=== PATIENT | male | born 1950 | race Caucasian/White ===

== ENCOUNTER 2017-10-10 07:58 | Emergency (ER) | payer MEDICARE ==
[2017-10-10] MEDS ORDERED: Proparacaine 0.5% Ophth Soln 15 ML Bottle EYERT ONE (08:20)
[2017-10-10] MEDS ORDERED: Benoxinate/Fluorescein 0.4-0.25% Ophth Soln 5 ML Bottle EYERT ONE (08:25)
[2017-10-10] MEDS ORDERED: Fluorescein 0.6 MG Ophth Strip ONE (08:30)
[2017-10-10] MEDS ORDERED: Ciprofloxacin 0.3% Ophth Soln 2.5 ML Bottle EYERT ONE (08:42)
--- NOTE | 2017-10-10 08:42 | EDM.PDOC ---
ED HPI GENERAL MEDICAL PROBLEM - General Chief Complaint: Eye Problems Stated Complaint: RIGHT EYE ISSUES Time Seen by Provider: 10/10/17 08:13 Source of Information: Reports: Patient History Limitations: Reports: No Limitations - History of Present Illness INITIAL COMMENTS - FREE TEXT/NARRATIVE: The patient presents with right eye pain, redness and swelling. He says a few days ago he noticed an eyelash in his eye and he tried to get at it. He then developed eye pain, drainage and swelling. He has glasses but no contacts. He has no blurred or double vision. He is not on any blood thinners. He says his BP has been running higher lately and his doctor is trying to get it down. He had drainage from it today. Onset: Gradual Duration: Day(s): Location: Reports: Other (Right eye) Quality: Reports: Ache Severity: Mild Improves with: Reports: None Worsens with: Reports: None Associated Symptoms: Reports: No Other Symptoms Right Eye Pain Score (Numeric/FACES): 3 - Related Data Allergies Allergy/AdvReac Type Severity Reaction Status Date / Time lisinopril Allergy Other Verified 01/27/17 08:00 Social & Family History - Tobacco Use Smoking Status *Q: Never Smoker - Caffeine Use Caffeine Use: Reports: Coffee - Recreational Drug Use Recreational Drug Use: No ED ROS GENERAL - Review of Systems Review Of Systems: See Below Constitutional: Reports: No Symptoms HEENT: Reports: Other (Right eye pain, swelling and redness) Respiratory: Reports: No Symptoms Cardiovascular: Reports: No Symptoms Endocrine: Reports: No Symptoms GI/Abdominal: Reports: No Symptoms : Reports: No Symptoms Musculoskeletal: Reports: No Symptoms Skin: Reports: No Symptoms ED EXAM GENERAL W FULL EYE - Physical Exam Exam: See Below Exam Limited By: No Limitations General Appearance: Alert, No Apparent Distress Eye Exam: Right Eye: Conjunctival Injection, Corneal Abrasion (Lateral part of the eye), Bilateral Eye: EOMI, PERRL Eyelids: Bilateral: Normal Appearance Conjunctiva & Sclera: Right: Conjunctival Edema, Injected, Subconjuctival Hemorrhage Cornea Exam: Right: Corneal Abrasion (Lateral), Examined with Flourescein Extraocular Movements: Bilateral: Intact Pupillary Size: Bilateral: 4 mm Pupillary Reaction: Bilateral: Brisk Anterior Chamber: Right: Normal Appearance Nose: Normal Inspection Throat/Mouth: Normal Inspection Head: Atraumatic, Normocephalic Neck: Normal Inspection Course - Vital Signs Last Recorded V/S: Last Vital Signs Temp 97.8 F 10/10/17 08:04 Pulse 62 10/10/17 08:04 Resp 18 10/10/17 08:04 BP 167/101 H 10/10/17 08:04 Pulse Ox 96 10/10/17 08:04 - Orders/Labs/Meds Meds: Medications Discontinued Medications Generic Name Dose Route Start Last Admin Trade Name Lesli PRAlyx Reason Stop Dose Admin Fluorescein Sodium Confirm 10/10/17 08:30 Ful-Dorota Administered 10/10/17 08:31 Dose 1.2 mg .ROUTE .STK-MED ONE Fluorescein Sodium/Benoxinate HCl 1 ml 10/10/17 08:25 Fluress Ophth Soln EYERT 10/10/17 08:26 ONETIME ONE Proparacaine HCl 1 ml 10/10/17 08:20 Proparacaine 0.5% Ophth Soln EYERT 10/10/17 08:21 ONETIME ONE - Re-Assessments/Exams Free Text/Narrative Re-Assessment/Exam: 10/10/17 08:41 He has a corneal abrasion with subconjunctival hemorrhage. I will get him some cipro drops. Departure - Departure Time of Disposition: 20:45 Disposition: Home, Self-Care 01 Condition: Good Clinical Impression: Subconjunctival hemorrhage of right eye Corneal abrasion Qualifiers: Encounter type: initial encounter Laterality: right Qualified Code(s): S05.01XA - Injury of conjunctiva and corneal abrasion without foreign body, right eye, initial encounter - Discharge Information *PRESCRIPTION DRUG MONITORING PROGRAM REVIEWED*: Not Applicable *COPY OF PRESCRIPTION DRUG MONITORING REPORT IN PATIENT BENJAMIN: Not Applicable Referrals: Lanette Martinez DO [Primary Care Provider] - Additional Instructions: Use the cipro drops 1 drop every 4 hours while awake for 5 to 7 days. Take tylenol or motrin for any pain. 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 Please return if you are worse.
== END 2017-10-10 09:05 | disposition home or self-care (01) ==
LOC: JD.ED 07:58
DX: S05.01XA Injury of conjunctiva and corneal abrasion without foreign body, right eye, initial encounter (principal); H11.31 Conjunctival hemorrhage, right eye; Z88.8 Allergy status to other drugs, medicaments and biological substances; W22.8XXA Striking against or struck by other objects, initial encounter
CPT/HCPCS: 99283; A9270

== ENCOUNTER 2022-12-07 06:17 | Day surgery (SDC) | payer OTHER, MEDICARE ==
[~2022-12-07 06:17] MED LIST: Acetaminophen 325 MG Tab PO SCH; Lactated Ringers 1,000 ML IV SCH; Morphine 8 MG, EPINEPHrine 0.3 MG, Cefuroxime 750 MG, Ketorolac 30 MG, Sodium Chloride ... PRN; Pregabalin 25 MG Cap PO SCH; Sodium Chloride 0.9% 10 ML Syringe FLUSH PRN; Sodium Chloride 0.9% 10 ML Syringe FLUSH SCH; oxyCODONE ER 10 MG TAB.ER PO SCH
[2022-12-07] MEDS ORDERED: Vancomycin 1 GM SDV ONE (06:19)
[2022-12-07] MEDS ORDERED: Tranexamic Acid 1,000 MG/10 ML Vial ONE (06:20)
[2022-12-07] MEDS ORDERED: Propofol 200 MG/20 ML SDV ONE ×2 (06:31→07:49)
[2022-12-07] MEDS ORDERED: Lidocaine 2% 100 MG/5 ML Syringe ONE (06:31)
[2022-12-07] MEDS ORDERED: fentaNYL 100 MCG/2 ML SDV ONE (06:32)
[2022-12-07] MEDS ORDERED: Lidocaine 1% 5 ML VIAL ONE (06:33)
[2022-12-07] MEDS ORDERED: ceFAZolin 2 GM Vial ONE (07:17)
[2022-12-07] MEDS ORDERED: Ketamine 200 MG/20 ML MDV ONE (07:30)
[2022-12-07] MEDS ORDERED: Acetaminophen/HYDROcodone 325-5 MG Tab PO ONE (09:05)
[2022-12-07] MEDS ORDERED: Ondansetron 4 MG/2 ML SDV IVPUSH SCH (11:22)
[2022-12-07] MEDS ORDERED: fentaNYL 100 MCG/2 ML SDV IVPUSH PRN (11:32)
[2022-12-07] MEDS ORDERED: HYDROmorphone 0.5 MG/0.5 ML Syringe IVPUSH PRN (11:32)
[2022-12-07] MEDS ORDERED: Ondansetron 4 MG/2 ML SDV IVPUSH PRN (11:32)
[2022-12-07] MEDS ORDERED: Acetaminophen/HYDROcodone 325-5 MG Tab PO PRN (12:51)
== END 2022-12-07 13:26 | disposition home or self-care (01) ==
LOC: JD.SDS 06:17
PROVIDERS: ATTEND Orthopaedic Surgery
DX: M16.11 Unilateral primary osteoarthritis, right hip (principal); G89.29 Other chronic pain; I11.0 Hypertensive heart disease with heart failure; I50.32 Chronic diastolic (congestive) heart failure; F41.9 Anxiety disorder, unspecified; G47.00 Insomnia, unspecified; M10.9 Gout, unspecified; E78.2 Mixed hyperlipidemia; G47.33 Obstructive sleep apnea (adult) (pediatric); Z88.8 Allergy status to other drugs, medicaments and biological substances; Z79.899 Other long term (current) drug therapy; Z79.82 Long term (current) use of aspirin
CPT/HCPCS: 0055T; 27130; 36415; 73501; 86850; 86900; 86901; 97110; 97116; 97161; A9270; C1713; C1776; J0171; J0690; J0697; J1885; J2270; J2405; J2704; J3010; J3370; J7030; J7120; 01214; 99100; J3490